=== PATIENT | female | born 1985 | race Caucasian/White ===

== ENCOUNTER 2023-10-02 14:01 | Emergency (ER) | payer BC, MEDICAID, SELFPAY ==
[2023-10-02 14:07] VITALS: BP 173/96; PULSE 123; RESP 18; TEMP 37; O2SAT 97; BMI 42.4
--- NOTE | 2023-10-02 14:14 | ED.C_ITS ---
HPI - Psych General: Chief Complaint: Psychiatric Symptoms Stated Complaint: SI Time Seen by Provider: 10/02/23 14:02 Source: patient and police Limitations: no limitations History of Present Illness: Patient is a 37-year-old female presents to ED today via police for evaluation of depression/suicidal ideations. Patient states earlier today her and her significant other got into a verbal altercation. Patient states she was very upset and called the police and reportedly made suicidal statements. Upon arrival to the emergency department she has calm down and states she is no longer suicidal. Patient states she has no previous suicide attempts. She has no history of self harming behavior. Denies drug use or alcohol use. When asked what I could do for her today, she responds she would like the name of some psychiatrists to follow-up with. Patient does not desire hospitalization [facility] and would like to go home. complaint: feels depressed Onset (ago): hour(s) Duration: resolved prior to arrival History of same: No Context: significant life stressor (Argument with significant other) Associated psychiatric symptoms: depression Associated symptoms: Reports depression; Deny auditory hallucinations, visual hallucinations, homicidal ideation or suicidal ideation Review of Systems Psych: Reports: anxiety and depression; Denies: visual hallucinations, auditory hallucinations, suicidal ideation or homicidal ideation Physical Exam Const: COMMON NORMALS: no acute distress, no limitations, alert and well nourished GENERAL APPEARANCE: cooperative NUTRITIONAL APPEARANCE: obese Neuro: SENSORIUM/ORIENTATION: Yes alert Psych: COMMON NORMALS: mental status grossly normal, Normal thought process present, cooperative, speech normal, activity/motor behavior normal, denies hallucinations, denies homicidal ideation and denies suicidal ideation APPEARANCE: Yes grossly normal ATTITUDE: Yes calm ACTIVITY/MOTOR BEHAVIOR: Yes appropriate eye contact SPEECH: Yes normal speech MOOD & AFFECT: Yes Flat affect present THOUGHT PROCESS: Normal thought process present THOUGHT CONTENT: Yes Normal thought content present ATTENTION/CONCENTRATION: Yes attention grossly intact and Yes concentration grossly intact MEMORY/COGNITION: Yes memory grossly intact and Yes cognition grossly intact INSIGHT: Good insight present (Psych) JUDGEMENT: Good judgement present (Psych) Course Vital Signs: Vital signs: Vital Signs Temperature 98.6 F 10/02/23 14:07 Pulse Rate 123 H 10/02/23 14:07 Respiratory Rate 18 10/02/23 14:07 Blood Pressure 173/96 10/02/23 14:07 Pulse Oximetry 97 10/02/23 14:07 Oxygen Delivery Me thod Room Air 10/02/23 14:07 MDM - Psych Medical Decision Making Patient is a 37-year-old female here after being brought by police after she called them upset following a verbal altercation with her significant other. She reportedly made suicidal statements. Upon arrival to the emergency department patient states she feels better and is no longer suicidal. She states she has no history of suicidal attempts. No previous high risk behaviors. Patient does not want to be admitted to [facility]. She would like to go home. I will place case management referral for [facility]. I would like her to follow-up with her primary care in the meantime. We also discussed utilizing the Crisis Center as needed. Differential Diagnosis Likely depression Medical Records I reviewed the patient's medical records. Lab Data I reviewed the patient's lab results. No radiology studies performed this visit Discharge Plan Discharge Patient Disposition: Home Clinical Impression: Depression Qualifiers: Depression Type: major depressive disorder Major depression recurrence: recurrent Active/Remission status: currently active Major depression episode severity: mild Qualified Code(s): F33.0 - Major depressive disorder, recurrent, mild Condition: Stable Discharge Orders: Discharge ED (Routine); Ordered 10/02/23 Ordered By: Karissa Crouch Referrals: Rochelle Miranda FNP [Primary Care Provider] - Patient Instructions: Depression (ED), Help Prevent Suicide (ED) Activity Restrictions/Additional Instructions: As you have indicated, you are not acutely suicidal at this time. If this changes I would like you to immediately contact 911 or alert a family/friend to get you emergent help. I will place a case management referral to get you set up with behavioral health care. In the meantime I would like you to follow-up with your primary care provider and/or the Crisis Center. You have been offered hospitalization for your depression but have declined. Coding Level of Care Code ED [employer] for [employer]
[2023-10-02 14:48] VITALS: BP 167/80; PULSE 105; RESP 16; O2SAT 99
--- NOTE | 2023-10-03 07:53 | DCPLANNER ---
Message sent to [facility]-
== END 2023-10-02 14:49 | disposition home or self-care (01) ==
PROVIDERS: Emergency Provider Physician Assistant; PCP Nurse Practitioner Family
DX: F33.0 Major depressive disorder, recurrent, mild (principal)
CPT/HCPCS: 99283